=== PATIENT | female | born 1980 | race Caucasian/White ===

== ENCOUNTER 2018-11-27 14:52 | Emergency (ER) | payer MEDICAID ==
[2018-11-27] MEDS: LIDOCAINE 1% (MPF) 5 ML VIAL INJ (16:19)
[2018-11-27] MEDS: HYDROCODONE/APAP (5/325) TAB PO ×2 (16:21→17:11)
[2018-11-27] MEDS: IBUPROFEN 800 MG TAB PO (17:11)
== END 2018-11-27 17:21 | disposition home or self-care (01) ==
LOC: FTE 14:52
DX: L02.11 Cutaneous abscess of neck (principal)
CPT/HCPCS: 10060; 99283-25

== ENCOUNTER 2018-11-29 07:44 | Emergency (ER) | payer MEDICAID | END 2018-11-29 08:42 | disposition home or self-care (01) | LOC: FTE 07:44 | DX: Z48.01 Encounter for change or removal of surgical wound dressing (principal) | CPT/HCPCS: 99282; Z7502 ==

== ENCOUNTER 2018-12-03 08:28 | Emergency (ER) | payer MEDICAID | END 2018-12-03 09:55 | disposition home or self-care (01) | LOC: FTE 08:28 | DX: Z48.01 Encounter for change or removal of surgical wound dressing (principal) | CPT/HCPCS: 99281 ==